=== PATIENT | male | born 1990 | race African-American/Black ===

== ENCOUNTER 2018-10-12 19:25 | Emergency (ER) | payer SELFPAY ==
[~2018-10-12] VITALS: Ht 167.6 cm; Wt 54.0 kg
[2018-10-12 19:48] VITALS: BP 113/77
== END 2018-10-12 22:01 | disposition left against medical advice (07) ==
LOC: ER 19:25
DX: Z53.21 Procedure and treatment not carried out due to patient leaving prior to being seen by health care provider (principal)